=== PATIENT | female | born 1985 | race Two or more races ===

== ENCOUNTER → 2022-07-10 | Day surgery (SDC) | payer MEDICAID ==
[~2022-07-10] VITALS: Ht 160 cm; Wt 108.9 kg
[~2022-07-10] MED LIST: BACITRACIN 15GM TUBE TOP ONE; BUPIVACAINE HCL/PF 0.5% (5MG/ML) 10ML ONE; FENTANYL CITRATE/PF 50MCG/ML 2ML VIAL ONE; GLYCOPYRROLATE 0.2 MG/ML 2ML VIAL ONE; HYDROMORPHONE HCL/PF 2MG/ML CPJ IV PRN; LACTATED RINGERS 1,000 ML IV SCH; LEVO125T8 PO; LIDOCAINE HCL 1% 20ML VIAL (Pyxis) INJ ONE; METF-416 PO; METHYLENE BLUE 50 MG/10 ML AMP IV ONE; MIDAZOLAM HCL 2 MG/2 ML VIAL ONE; ONDANSETRON HCL 4MG/2ML INJ IV PRN; PROP10TA10 PO; PROPOFOL 200MG/20ML VIAL IV ONE; SUCCINYLCHOLINE CHLORIDE 200MG/10ML IV ONE
[2022-07-10 06:13] LABS: CLARITY URINE CLEAR (CLEAR); COLOR URINE YELLOW (YELLOW); KETONES URINE NEGATIVE (NEGATIVE); LEUKOCYTE ESTERASE URINE 1+ (NEGATIVE); NITRITE URINE NEGATIVE (NEGATIVE); OCCULT BLOOD URINE TRACE (NEGATIVE); PH URINE 6.5 (4.5-8.0); PROTEIN URINE NEGATIVE (NEGATIVE); SPECIFIC GRAVITY URINE 1.021 (1.005-1.030); UROBILINOGEN URINE 0.2 E.U./dL (0.2-1.0)
[2022-07-10 06:48] LABS: UCG SCREEN NEGATIVE
== END | disposition home or self-care (01) ==
LOC: OR 06:24
PROVIDERS: ATTEND Surgery
DX: K60.3 Anal fistula (principal); E11.9 Type 2 diabetes mellitus without complications; Z79.84 Long term (current) use of oral hypoglycemic drugs; Z79.899 Other long term (current) drug therapy; Z98.890 Other specified postprocedural states; Z20.822 Contact with and (suspected) exposure to COVID-19
CPT/HCPCS: 46270; 81003; 81025; 82962; 87426; C9803; J0330; J2250; J2704; J3010; J3490; Q9968